=== PATIENT | female | born 1950 | race Caucasian/White ===

== ENCOUNTER 2018-04-14 06:57 | Emergency (ER) | payer SELFPAY ==
[~2018-04-14] VITALS: Ht 152.4 cm; Wt 60.8 kg
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
--- NOTE | 2018-04-14 07:12 | NUR ---
DR. WATERMAN AT BEDSIDE FOR EVAL.
--- NOTE | 2018-04-14 07:15 | NUR ---
RADIOLOGY AT BEDSIDE FOR CXR
[2018-04-14] MEDS ORDERED: IBUPROFEN 600 MG TABLET PO ONE ×2 (07:30→07:32)
--- NOTE | 2018-04-14 07:55 | NUR ---
PATIENT AMBULATING WITH STEADY GAIT, BUT SLIGHT LIMP. MD INFORMED AND INSTRUCTED TO APPLY ANIVAL WRAP.
[2018-04-14 08:31] VITALS: BP 139/81
--- NOTE | 2018-04-14 09:25 | NUR ---
Patient discharged to home in stable condition. Written and verbal after care instructions given. Patient verbalizes understanding of instruction.
== END 2018-04-14 09:24 | disposition home or self-care (01) ==
LOC: ER 07:00
DX: S20.211A Contusion of right front wall of thorax, initial encounter (principal); S90.511A Abrasion, right ankle, initial encounter; S20.111A Abrasion of breast, right breast, initial encounter; Z88.0 Allergy status to penicillin; Z60.2 Problems related to living alone; V43.53XA Car driver injured in collision with pick-up truck in traffic accident, initial encounter; Y93.89 Activity, other specified; Y92.413 State road as the place of occurrence of the external cause; Y99.8 Other external cause status
CPT/HCPCS: 71045; 73610; 93005; 99284; A4606; Z7610

== ENCOUNTER 2018-10-18 11:16 | Emergency (ER) | payer BC, MEDICARE ==
[~2018-10-18] VITALS: Ht 152.4 cm; Wt 63.5 kg
[2018-10-18 11:16] VITALS: BP 132/65
[2018-10-18] MEDS ORDERED: ALBUTEROL FS 2.5 MG/3 ML VIAL.NEB ONE (12:19)
[2018-10-18] MEDS ORDERED: IBUPROFEN 600 MG TABLET PO ONE ×2 (12:23→12:30)
[2018-10-18] MEDS ORDERED: ALBUTEROL FS 2.5 MG/3 ML VIAL.NEB NEB ONE (12:30)
== END 2018-10-18 13:36 | disposition home or self-care (01) ==
LOC: ER 11:21
DX: J06.9 Acute upper respiratory infection, unspecified (principal); Z88.0 Allergy status to penicillin; Z60.2 Problems related to living alone
CPT/HCPCS: 71045-TC

== ENCOUNTER 2018-12-19 06:56 | Emergency (ER) | payer BC, MEDICARE, OTHER ==
[~2018-12-19] VITALS: Ht 152.4 cm; Wt 57.6 kg
[2018-12-19 07:04] VITALS: BP 171/111
== END 2018-12-19 07:27 | disposition home or self-care (01) ==
LOC: ER 07:02
DX: J40 Bronchitis, not specified as acute or chronic (principal); R03.0 Elevated blood-pressure reading, without diagnosis of hypertension; Z88.0 Allergy status to penicillin; Z60.2 Problems related to living alone